=== PATIENT | male | born 1990 | race Caucasian/White ===

== ENCOUNTER 2020-09-01 21:59 | Emergency (ER) | payer MEDICAID, OTHER ==
[~2020-09-01] VITALS: Ht 175.3 cm; Wt 77.1 kg
[2020-09-01 22:04] VITALS: BP 157/91
== END 2020-09-01 23:15 | disposition left against medical advice (07) ==
LOC: EDBD 21:59 → ER 22:11
DX: T65.91XA Toxic effect of unspecified substance, accidental (unintentional), initial encounter (principal); Y92.89 Other specified places as the place of occurrence of the external cause

== ENCOUNTER 2020-10-24 03:28 | Emergency (ER) | payer MEDICAID ==
[~2020-10-24] VITALS: Ht 177.8 cm; Wt 72.6 kg
[2020-10-24 03:28] VITALS: BP 121/90
== END 2020-10-24 03:56 | disposition left against medical advice (07) ==
LOC: ER 03:28
DX: R45.851 Suicidal ideations (principal); Z53.21 Procedure and treatment not carried out due to patient leaving prior to being seen by health care provider